=== PATIENT | female | born 1985 | race Caucasian/White ===

== ENCOUNTER → 2017-01-12 | Outpatient (CLI) | payer BC ==
[~2017-01-12] MED LIST: ALLEGRA60 MG PO; CLINDAMYCIN HC300 MG PO; LEVAQUIN500 MG PO; LEVOTHYROXIN0.088 MG PO; LEVOTHYROXINE0.1 M1 PO; MUCINEX1200 MG PO; PERCOCET 5/3251 EACH PO; PRENATAL PLUS1 TA1 PO; PRILOSEC10 MG PO
--- NOTE | 2017-01-12 14:49 | RADIOLOGY REPORT PS360 ---
US PREG COMP: INDICATION: ANATOMY OB US ORDERING PHYSICIAN: Margarito Chester MD PATIENT AGE: 31 years TECHNIQUE: ultrasound transabdominal scanning. COMPARISON: No previous relevant studies. FINDINGS: Single viable intrauterine gestation. Breech position. Placenta: Anterior placenta grade 1. There is average amount fluid. The cervix appears satisfactory. Closed and measuring 3 cm in length. Complete survey performed and was unremarkable on the submitted images as in PACS. No discrete anomalies identified on survey imaging by technologist. Active fetus. Three-vessel cord with satisfactory umbilical cord insertion. 4- chamber heart noted. Survey of brain & ventricles. Face and neck survey unremarkable. Diaphragm and chest views unremarkable. Abdomen: Both kidneys noted and unremarkable. Stomach noted and satisfactory. Spine: Survey of the spine satisfactory with no anomalies identified nor imaged. Both arms and legs noted. Amniotic Fluid: Adequate. Maternal adnexa: No significant findings. Measurements: Average ultrasound age 19 weeks 4 days. Gestational Age 20 weeks 0 days. Estimated due date by ultrasound age 406/04/2017. Estimated weight 295 grams. 20th percentile BPD = 19 weeks 3 days OFD = 21 weeks 0 days HC = 19 weeks 5 days AC = 20 weeks 0 days FL = 19 weeks 0 days Heart Rate = 146 BPM Cerebellum = 19 weeks 6 days Humerus = 21 weeks 4 days HC/AC is 1.16. CI is 71%. FL/BPD is 66%. FL/AC is 20%. IMPRESSION: There is a single live fetus which is in breech presentation with an average ultrasound age of 19 weeks 4 days. heart and body motion noted. No obvious anomalies. Estimated due date is 06/04/2017. Please see above for detail
== END ==
LOC: RAD 13:03
DX: Z36.0 Encounter for antenatal screening for chromosomal anomalies (principal)